=== PATIENT | female | born 2000 | race Caucasian/White ===

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

== ENCOUNTER 2022-03-28 01:26 | Emergency (ER) | payer OTHER ==
--- OUTSIDE RECORDS SUMMARY | 2022-03-28 01:30 | XMS REPORT | Continuity of Care Document ---
:2000 Author Organization [facility] t Address [address] [place] [address] Care Team Providers Name Role Phone Arthur Mcgowan Attending Clinician Unavailable Neurology Attending Clinician Unavailable Doctor Unassigned, [place] Attending Clinician Unavailable Lab, Adc Fam Pob I Attending Clinician Unavailable Shreee Pizano Attending Clinician SHEREE RUIZ Attending Clinician Unavailable Payers Payer Name Policy Type Policy Number Effective Date Expiration Date S ource Towner 53 [id number] [facility] Problems Condition Condition Condition Status Onset Resolution Last Treating Co mments Source Name Details Category Date Date Treatment Clinician Date [id number] Raynaud's Problem Com mon phenomenon [facility] gangrene [facility] Allergies, Adverse Reactions, Alerts Allergy Allergy Status Severity Reaction(s) Onset Inactive Treating Comm ents Source Name Type Date Date Clinician penicill penicill Active Unknown Commo n in V in V [facility] NO KNOWN Drug Active [facility] [place] [facility] Social History Social Habit Start Date Stop Date Quantity Comments Source Exposure to SARS-CoV-2 Yes [facility] [place] [facility] History of Tobacco Use Co mmon [facility] Sex Assigned At Com mon [facility] Smoking Status Start Date Stop Date Source Unknown if ever smoked [facility] Never Smoker Common [facility] Medications Ordered Filled Start Stop Current Ordering Indication Dosage Frequency Signature Comments Components Source Medication Medication Date Date Medication? Clinician (SIG) Name Name Eucrisa 2 % Eucrisa 2 % 2021- No 1{appli BID Eucrisa 2 2-03 03-05 cation} % 00:00: 00:00 00 :00 Azithromyci Azithromyci No QD Azithromyc n 250 MG n 250 MG in 250 MG Azithromyci Azithromyci No QD Azithromyc n 250 MG n 250 MG in 250 MG Immunizations Ordered Filled Immunization Date Status Comments Sour e Immunization Name Name SARS-COV-2 COVID-19 2020-08-16 Completed Unive rsity of PFIZER VACCINE 00:00:00 [facility] SARS-COV-2 COVID-19 2020-07-26 Completed Unive rsity of PFIZER VACCINE 00:00:00 [facility] Vital Signs Vital Name Observation Time Observation Value Comments Source height 2022-02-23 16:20:00 60 [in_i] [facility] weight 2022-02-23 16:20:00 106 [lb_av] [facility] temperature 2022-02-23 16:20:00 98 [degF] [facility] bmi 2022-02-23 16:20:00 20.7 kg/m2 [facility] height 2021-12-29 13:00:00 60 [in_i] [facility] weight 2021-12-29 13:00:00 106.2 [lb_av] [facility] temperature 2021-12-29 13:00:00 97.8 [degF] [facility] bmi 2021-12-29 13:00:00 20.74 kg/m2 [facility] oximetry 2021-12-29 13:00:00 99 % [facility] respiratory rate 2021-12-29 13:00:00 18 /min Comm on [facility] blood pressure 2021-12-29 13:00:00 114 mm[Hg] [facility] blood pressure 2021-12-29 13:00:00 67 mm[Hg] Common [facility] - diastolic [facility] height 2021-12-07 14:30:00 60 [in_i] Common S [facility] weight 2021-12-07 14:30:00 107.4 [lb_av] [facility] temperature 2021-12-07 14:30:00 97.2 [degF] Common S [facility] bmi 2021-12-07 14:30:00 20.97 kg/m2 Common S [facility] oximetry 2021-12-07 14:30:00 99 % [facility] respiratory rate 2021-12-07 14:30:00 18 /min Comm on [facility] blood pressure 2021-12-07 14:30:00 113 mm[Hg] Common [facility] - systolic [facility] blood pressure 2021-12-07 14:30:00 70 mm[Hg] [facility] diastolic [facility] height 2021-05-21 14:40:00 60 [in_i] [facility] weight 2021-05-21 14:40:00 109.3 [lb_av] [facility] temperature 2021-05-21 14:40:00 97.0 [degF] [facility] bmi 2021-05-21 14:40:00 21.34 kg/m2 [facility] oximetry 2021-05-21 14:40:00 100 % [facility] respiratory rate 2021-05-21 14:40:00 18 /min Comm on [facility] blood pressure 2021-05-21 14:40:00 111 mm[Hg] [facility] systolic [facility] blood pressure 2021-05-21 14:40:00 68 mm[Hg] [facility] diastolic [facility] Procedures Procedure Date / Time Performed Performing Clinician [facility] e REFERRAL- 2020-07-14 05:01:00 Doctor Unassigned, No Univer [facility] REQUEST/RESPONSE Name Medical Branch Encounters Start End Encounter Admission Attending Care Care Encounter Source Date/Time Date/Time Type Type Clinicians Facility Department ID 2022-02-23 Outpatient Mcgowan, STLMLC STLMLC [id number] Common 08:30:02 Arthur [address] [facility] 2021-12-30 Outpatient Mcgowan, STLMLC STLMLC [id number] Common 12:26:01 Arthur [facility] 2021-05-21 Outpatient Mcgowan, STLMLC STLMLC [id number] Common 15:00:03 Arthur [facility] 2022-02-23 2022-02-23 (TEL) STLMLC STLMLC [id number] Co mmon 00:00:00 00:00:00 [facility] 2022-02-23 2022-02-23 OFFICE STLC STLC [id number] Co mmon 00:00:00 00:00:00 VISIT EST Spir it PT LEVEL 3 [facility] 2021-12-29 2021-12-29 OFFICE STLMLC STLMLC [id number] Co mmon 00:00:00 00:00:00 VISIT Spirit ESTAB PT - [facility] LEVEL 4 [facility] 2021-12-07 2021-12-07 PREV VISIT STLMLC STLMLC [id number] Common 00:00:00 00:00:00 EST AGE Spirit 18-39 - [facility] 2021-05-21 2021-05-21 OFFICE STLMLC STLMLC [id number] Co mmon 00:00:00 00:00:00 VISIT NEW Spir it PT LEVEL 3 [facility] 2020-09-24 2020-09-24 Letter Neurology UNIVERSIT [id number] Univers 00:00:00 00:00:00 (Out) Y HEALTH [id number] i ty of CLINICS [id number] [place] s [id number] [facility] 092 Branch 2020-08-16 2020-08-16 Outpatient [facility] [id number] Univers 14:30:00 14:30:00 ity [facility] 2020-07-26 2020-07-26 Outpatient [facility] [id number] Univers 13:00:00 13:00:00 ity [facility] 2020-07-14 2020-07-14 Orders Doctor [id number] Univers 00:00:00 00:00:00 Only Unassigned, RIGO [id number] ity of [place] [facility] [id number] Jere as [id number] [address] 2020-03-30 2020-03-30 Laboratory Lab, Adc Fam Pob I [facility] [id number] Univers 08:17:54 08:37:54 Only [facility] [id number] ity of [place] [id number] Jere as Professio [phone] [address] 2020-03-30 2020-03-30 Outpatient R JOSEPH [facility] [id number] Univers 08:20:00 08:20:00 [facility] This patient has no known results.
[2022-03-28 02:35] LABS: SARS-COV-2 RT PCR NEGATIVE (NEGATIVE)
--- NOTE | 2022-03-28 03:04 | ER ---
Nurse's Notes [facility] Name: Shen Cutler Age: 21 yrs Sex: Female : 2000 Arrival Date: 03/28/2022 Time: 01:29 Bed 6 Private MD: Diagnosis: Streptococcal pharyngitis Presentation: 03/28 01:35 Chief complaint: Patient states: sore throat diff swallowing x 2 days. Coronavirus kl screen: Vaccine status: Patient reports receiving the 2nd dose of the covid vaccine. Ebola Screen: Patient negative for fever greater than or equal to 101.5 degrees Fahrenheit, and additional compatible Ebola Virus Disease symptoms. Initial Sepsis Screen: Does the patient meet any 2 criteria? No. Patient's initial sepsis screen is negative. Does the patient have a suspected source of infection? No. Patient's initial sepsis screen is negative. Risk Assessment: Do you want to hurt yourself or someone else? Patient reports no desire to harm self or others. 01:35 Method Of Arrival: Ambulatory kl 01:35 Acuity: JOSHUA 4 kl 01:43 Onset of symptoms was March 25, 2022. as6 Triage Assessment: 01:37 General: Appears in no apparent distress. comfortable, well groomed, well developed, kl Behavior is calm, cooperative. Pain: Complains of pain in throat Pain currently is 6 out of 10 on a pain scale. Cardiovascular: No deficits noted. Respiratory: Reports Airway is patent Trachea midline Respiratory effort is even, unlabored. 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 - Social history:: Smoking status: Patient denies any tobacco usage or history of. Screenin:42 Abuse screen: Denies threats or abuse. Denies injuries from another. Nutritional as6 screening: No deficits noted. Tuberculosis screening: No symptoms or risk factors identified. Fall Risk None identified. Assessment: 02:50 General: Appears in no apparent distress. Behavior is calm, cooperative. Neuro: Level kd3 of Consciousness is awake, alert, obeys commands, Oriented to person, place, time, situation. Respiratory: Airway is patent Trachea midline Respiratory effort is even, unlabored, Respiratory pattern is regular, symmetrical. EENT: Throat is reddened has enlarged tonsils. Vital Signs: 01:35 BP 127 / 84; Pulse 101; Resp 16; Temp 98.4(O); Pulse Ox 100% on R/A; Weight 45.36 kg kl (R); Height 5 ft. (152.40 cm); Pain 6/10; 02:49 BP 124 / 78; Pulse 101; Resp 18; Pulse Ox 100% on R/A; kd3 03:09 BP 113 / 70; Pulse 100; Resp 18; Pulse Ox 99% on R/A; kd3 01:35 Body Mass Index 19.53 (45.36 kg, 152.40 cm) ED Course: 01:29 Patient arrived in ED. bp1 01:32 Orly Rutledge RN is Primary Nurse. kd3 01:33 Ian Diaz MD is Attending Physician. kdr 01:37 Triage completed. kl 01:42 Arm band placed on. as6 01:43 Bed in low position. Call light in reach. as6 01:50 Strep Sent. as6 01:50 COVID-19/FLU A+B/RSV Sent. as6 03:09 No provider procedures requiring assistance completed. Patient did not have IV access kd3 during this emergency room visit. Administered Medications: 03:09 Drug: Zithromax (azithromycin) 500 mg Route: PO; kd3 03:11 Follow up: Response: No adverse reaction kd3 Medication: 02:51 VIS not applicable for this client. kd3 Outcome: 03:04 Discharge ordered by . kdr 03:10 Discharged to home ambulatory. kd3 03:10 Condition: stable 03:10 Discharge instructions given to patient, Instructed on discharge instructions, follow up and referral plans. medication usage, Demonstrated understanding of instructions, follow-up care, medications, Prescriptions given X 2. 03:11 Patient left the ED. kd3 Signatures: Manuela Crooks RN RN kl Rittger, Kevin, MD MD [facility] Candis Harvey bp1 Felix Puri RN RN as6 Orly Rutledge RN RN kd3
--- NOTE | 2022-03-28 03:04 | EDPHYS ---
Physician Documentation [facility] Name: Shen Cutler Age: 21 yrs Sex: Female : 2000 Arrival Date: 03/28/2022 Time: 01:29 Bed 6 Private MD: ED Physician Ian Diaz HPI: 03/28 01:49 This 21 yrs old Female presents to ER via Ambulatory with complaints of Breathing kdr Difficulty, Swollen Tonsils. 01:50 The patient reports that she has been having sore throat for the last 2 days. It hurts kdr to swallow and sometimes it seems difficult to breathe. She also states that her boyfriend has noted that she is snoring now whereas she had not previously. She denies fever, chills or cough. Patient is nontoxic-appearing. Onset: The symptoms/episode began/occurred gradually, 2 day(s) ago. Severity of symptoms: At their worst the symptoms were mild moderate just prior to arrival, in the emergency department the symptoms are unchanged. The patient has experienced a previous episode, last month, Patient states that she had an episode of pharyngitis about a month ago and this was treated by her PCP with an unknown antibiotic. It resolved.. The patient has not recently seen a physician. 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 - Social history:: Smoking status: Patient denies any tobacco usage or history of. ROS: 01:50 Constitutional: Negative for fever, chills, and weight loss, Eyes: Negative for injury, kdr pain, redness, and discharge, Neck: Negative for injury, pain, and swelling, Cardiovascular: Negative for chest pain, palpitations, and edema, Respiratory: Negative for shortness of breath, cough, wheezing, and pleuritic chest pain, Abdomen/GI: Negative for abdominal pain, nausea, vomiting, diarrhea, and constipation, Back: Negative for injury and pain. 01:50 ENT: Positive for difficulty swallowing, sore throat. 01:50 Neck: Positive for swollen nodes, tenderness, of the face, right lateral aspect of neck, right anterior aspect of neck, left lateral aspect of neck and left anterior aspect of neck. Exam: 01:50 Constitutional: This is a well developed, well nourished patient who is awake, alert, kdr and in no acute distress. Head/Face: Normocephalic, atraumatic. Eyes: Pupils equal round and reactive to light, extra-ocular motions intact. Lids and lashes normal. Conjunctiva and sclera are non-icteric and not injected. Cornea within normal limits. Periorbital areas with no swelling, redness, or edema. Neck: Trachea midline, no thyromegaly or masses palpated, and no cervical lymphadenopathy. Supple, full range of motion without nuchal rigidity, or vertebral point tenderness. No Meningismus. Chest/axilla: Normal chest wall appearance and motion. Nontender with no deformity. No lesions are appreciated. Cardiovascular: Regular rate and rhythm with a normal S1 and S2. No gallops, murmurs, or rubs. Normal PMI, no JVD. No pulse deficits. Respiratory: Lungs have equal breath sounds bilaterally, clear to auscultation and percussion. No rales, rhonchi or wheezes noted. No increased work of breathing, no retractions or nasal flaring. Abdomen/GI: Soft, non-tender, with normal bowel sounds. No distension or tympany. No guarding or rebound. No evidence of tenderness throughout. 01:50 ENT: Posterior pharynx: Airway: no evidence of obstruction, patent, Tonsils: bilaterally enlarged, with erythema, with exudate, Uvula: midline, swelling, that is moderate, that is marked, erythema, that is moderate, exudate, that is mild, pooling of secretions, is not appreciated. Vital Signs: 01:35 BP 127 / 84; Pulse 101; Resp 16; Temp 98.4(O); Pulse Ox 100% on R/A; Weight 45.36 kg kl (R); Height 5 ft. (152.40 cm); Pain 6/10; 02:49 BP 124 / 78; Pulse 101; Resp 18; Pulse Ox 100% on R/A; kd3 03:09 BP 113 / 70; Pulse 100; Resp 18; Pulse Ox 99% on R/A; kd3 01:35 Body Mass Index 19.53 (45.36 kg, 152.40 cm) kl MDM: 01:50 Data reviewed: vital signs, nurses notes, lab test result(s), radiologic studies. kdr Counseling: I had a detailed discussion with the patient and/or guardian regarding: the historical points, exam findings, and any diagnostic results supporting the discharge/admit diagnosis, lab results, radiology results, the need for outpatient follow up. 03:04 Patient medically screened. kdr 03/28 01:42 Order name: Strep; Complete Time: 03:02 kdr 03/28 01:46 Order name: COVID-19/FLU A+B/RSV; Complete Time: 02:39 mw2 Administered Medications: 03:09 Drug: Zithromax (azithromycin) 500 mg Route: PO; kd3 03:11 Follow up: Response: No adverse reaction kd3 Disposition Summary: 03/28/22 03:04 Discharge Ordered Location: Home kdr Problem: new kdr Symptoms: have improved kdr Condition: Stable kdr Diagnosis - Streptococcal pharyngitis kdr Followup: kdr - With: Private Physician - When: 2 - 3 days - Reason: If symptoms return, Further diagnostic work-up, Recheck today's complaints, Continuance of care, Re-evaluation by your physician Discharge Instructions: - Discharge Summary Sheet kdr - Pharyngitis kdr - Strep Throat, Adult kdr Forms: - Medication Reconciliation Form kdr - Thank You Letter kdr - Antibiotic Education kdr Prescriptions: - Ibuprofen 600 mg Oral Tablet - take 1 tablet by ORAL route every 6 hours As needed take with food; 15 tablet; kdr Refills: 0, Product Selection Permitted - Zithromax Z-Moreno 250 mg Oral Tablet - take 1 tablet by ORAL route once daily for 4 days; 4 tablet; Refills: 0, kdr Product Selection Permitted Signatures: Dispatcher [employer] Manuela Rashid RN RN kl Rittger, Kevin, MD MD kdr Doucette, Kyli, RN RN kd3
[2022-03-28] MEDS ORDERED: AZITHROMYCIN 250 MG TAB ONE (03:08)
[2022-03-28 03:15] VITALS: TEMP 98.4
[2022-03-28 03:17] VITALS: BP 113/70; O2SAT 99
[2022-03-28] MEDS ORDERED: LORAZEPAM 1 MG TABLET ONE (04:48)
== END 2022-03-28 03:11 | disposition home or self-care (01) ==
LOC: ER 01:26
DX: J02.0 Streptococcal pharyngitis (principal); Z20.822 Contact with and (suspected) exposure to COVID-19; Z88.0 Allergy status to penicillin; Z88.8 Allergy status to other drugs, medicaments and biological substances
CPT/HCPCS: 87081; 0241U; 99283; Q0144

== ENCOUNTER 2022-04-26 01:45 | Emergency (ER) | payer OTHER ==
--- OUTSIDE RECORDS SUMMARY | 2022-04-26 01:48 | XMS REPORT | Continuity of Care Document ---
:2000 Author Organization [facility] t Address [address] [place] [address] Care Team Providers Name Role Phone Arthur Mcgowan Attending Clinician Unavailable Neurology Attending Clinician Unavailable Doctor Unassigned, [place] Attending Clinician Unavailable Lab, Adc Fam Pob I Attending Clinician Unavailable Sheree Pizano Attending Clinician SHEREE RUIZ Attending Clinician Unavailable Payers Payer Name Policy Type Policy Number Effective Date Expiration Date [employer] 53 [id number] [facility] Problems Condition Condition Condition Status Onset Resolution Last Treating Co mments Source Name Details Category Date Date Treatment Clinician Date [id number] Raynaud's Problem Com mon phenomenon [facility] without [facility] gangrene [facility] Allergies, Adverse Reactions, Alerts Allergy Allergy Status Severity Reaction(s) Onset Inactive Treating Comm ents Source Name Type Date Date Clinician NO KNOWN Drug Active Univers ALLERGIE Class [facility] penicill penicill Active Unknown Commo n in V in V [facility] Social History Social Habit Start Date Stop Date Quantity Comments Source Exposure to SARS-CoV-2 Yes [facility] [place] (event[facility] History of Tobacco Use Co mmon [facility] Sex Assigned At Com mon [facility] Smoking Status Start Date Stop Date Source Unknown if ever smoked [facility] Never Smoker Common [facility] Medications Ordered Filled Start Stop Current Ordering [...] Completed Unive rsity of PFIZER VACCINE 00:00:00 [facility] SARS-COV-2 COVID-19 2020-07-26 Completed Unive rsity of PFIZER VACCINE 00:00:00 [facility] Vital Signs Vital Name Observation Time Observation Value Comments Source height 2022-02-23 16:20:00 60 [in_i] [facility] weight 2022-02-23 16:20:00 106 [lb_av] [facility] temperature 2022-02-23 16:20:00 98 [degF] [facility] bmi 2022-02-23 16:20:00 20.7 kg/m2 [facility] height 2021-12-29 13:00:00 60 [in_i] [facility] weight 2021-12-29 13:00:00 106.2 [lb_av] [facility] temperature 2021-12-29 13:00:00 97.8 [degF] [facility] bmi 2021-12-29 13:00:00 20.74 kg/m2 [facility] oximetry 2021-12-29 13:00:00 99 % [facility] respiratory rate 2021-12-29 13:00:00 18 /min Comm on [facility] blood pressure 2021-12-29 13:00:00 114 mm[Hg] [facility] blood pressure 2021-12-29 13:00:00 67 mm[Hg] Common [facility] - diastolic [facility] height 2021-12-07 14:30:00 60 [in_i] Common [facility] weight 2021-12-07 14:30:00 107.4 [lb_av] [facility] temperature 2021-12-07 14:30:00 97.2 [degF] Common [facility] bmi 2021-12-07 14:30:00 20.97 kg/m2 Common S [facility] oximetry 2021-12-07 14:30:00 99 % [facility] respiratory rate 2021-12-07 14:30:00 18 /min Comm on [facility] blood pressure 2021-12-07 14:30:00 113 mm[Hg] Common [facility] - systolic [facility] blood pressure 2021-12-07 14:30:00 70 mm[Hg] [facility] diastolic [facility] height 2021-05-21 14:40:00 60 [in_i] [facility] weight 2021-05-21 14:40:00 109.3 [lb_av] [facility] temperature 2021-05-21 14:40:00 97.0 [degF] [facility] bmi 2021-05-21 14:40:00 21.34 kg/m2 [facility] oximetry 2021-05-21 14:40:00 100 % [facility] respiratory rate 2021-05-21 14:40:00 18 /min Comm on [facility] blood pressure 2021-05-21 14:40:00 111 mm[Hg] [facility] systolic [facility] blood pressure 2021-05-21 14:40:00 68 mm[Hg] [facility] diastolic [facility] Procedures Procedure Date / Time Performed Performing Clinician [facility] e REFERRAL- 2020-07-14 05:01:00 Doctor Unassigned, No Univer [facility] REQUEST/RESPONSE Name Medical Branch Encounters Start End Encounter Admission Attending Care Care Encounter Source Date/Time Date/Time Type Type Clinicians Facility Department ID 2022-02-23 Outpatient Mcgowan, STLMLC STLMLC [id number] Common 08:30:02 Arthur [address] [facility] 2021-12-30 Outpatient Mcgowan, STLMLC STLMLC [id number] Common 12:26:01 Arthur [facility] 2021-05-21 Outpatient Mcgowan, STLMLC STLMLC [id number] Common 15:00:03 Arthur [facility] 2022-02-23 2022-02-23 (TEL) STLMLC STLMLC [id number] Co mmon 00:00:00 00:00:00 [facility] 2022-02-23 2022-02-23 OFFICE STLC STLC [id number] Co mmon 00:00:00 00:00:00 VISIT EST Spir it PT LEVEL 3 [facility] 2021-12-29 2021-12-29 OFFICE STLMLC STLMLC [id number] Co mmon 00:00:00 00:00:00 VISIT Spirit ESTAB PT - [facility] LEVEL 4 [facility] 2021-12-07 2021-12-07 PREV VISIT STLMLC STLMLC [id number] Common 00:00:00 00:00:00 EST AGE Spirit 18-39 - [facility] 2021-05-21 2021-05-21 OFFICE STLMLC STLMLC [id number] Co mmon 00:00:00 00:00:00 VISIT NEW Spir it PT LEVEL 3 [facility] 2020-09-24 2020-09-24 Letter Neurology [facility] [id number] Univers 00:00:00 00:00:00 (Out) Y HEALTH [id number] i ty of CLINICS [id number] [place] s [phone] [facility] 092 Branch 2020-08-16 2020-08-16 Outpatient [facility] [id number] Univers 14:30:00 14:30:00 ity [facility] 2020-07-26 2020-07-26 Outpatient [facility] [id number] Univers 13:00:00 13:00:00 ity [facility] 2020-07-14 2020-07-14 Orders Doctor [id number] Univers 00:00:00 00:00:00 Only Unassigned, RIGO [id number] ity of [place] [facility] [id number] Jere as [phone] [address] 2020-03-30 2020-03-30 Laboratory Lab, Adc Fam Pob I [facility] [id number] Univers 08:17:54 08:37:54 Only [facility] [id number] ity of [place] [id number] Jere as Professio [phone] [address] Office [address] 2020-03-30 2020-03-30 Outpatient R [facility] [id number] Univers 08:20:00 08:20:00 [facility] This patient has no known results.
--- NOTE | 2022-04-26 02:25 | ER ---
Nurse's Notes [facility] Name: Shen Cutler Age: 21 yrs Sex: Female : 2000 Arrival Date: 04/26/2022 Time: 01:51 Bed 15 Private MD: Diagnosis: Streptococcal pharyngitis Presentation: 04/26 02:10 Chief complaint: Patient states: "I have had a sore throat, fever, dry eyes and a vc1 headache for the last day or 2.". Coronavirus screen: Vaccine status: Patient reports receiving the 2nd dose of the covid vaccine. Pfizer fever, headache. Ebola Screen: No symptoms or risks identified at this time. Initial Sepsis Screen: Does the patient meet any 2 criteria? No. Patient's initial sepsis screen is negative. Does the patient have a suspected source of infection? No. Patient's initial sepsis screen is negative. Risk Assessment: Do you want to hurt yourself or someone else? Patient reports no desire to harm self or others. Onset of symptoms was April 24, 2022. 02:10 Method Of Arrival: Ambulatory vc1 02:10 Acuity: JOSHUA 4 vc1 Triage Assessment: 02:14 General: Appears in no apparent distress. comfortable, ill, Behavior is calm, vc1 cooperative, appropriate for age. Pain: Complains of pain in "headache" Pain does not radiate. EENT: Reports "dry eyes". Neuro: Level of Consciousness is awake, alert, obeys commands, Oriented to person, place, time, situation, Appropriate for age. Cardiovascular: No deficits noted. Respiratory: Airway is patent Respiratory effort is even, unlabored, Respiratory pattern is regular, symmetrical. GI: No deficits noted. No signs and/or symptoms were reported involving the gastrointestinal system. : No deficits noted. No signs and/or symptoms were reported regarding the genitourinary system. Derm: No deficits noted. No signs and/or symptoms reported regarding the dermatologic system. Musculoskeletal: No deficits noted. No signs and/or symptoms reported regarding the musculoskeletal system. 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 - Social history:: Smoking status: Patient denies any tobacco usage or history of. - Family history:: not pertinent. Screenin:16 Abuse screen: Denies threats or abuse. Nutritional screening: No deficits noted. vc1 Tuberculosis screening: No symptoms or risk factors identified. 02:20 [facility] ED Fall Risk Assessment (Adult) History of falling in the last 3 months, pf1 including since admission No falls in past 3 months (0 pts) Confusion or Disorientation No (0 pts) Intoxicated or Sedated No (0 pts) Impaired Gait No (0 pts) Mobility Assist Device Used No (0 pt) Altered Elimination No (0 pt) Score/Fall Risk Level 0 - 2 = Low Risk Oriented to surroundings, Maintained a safe environment, Educated pt \\T\\ family on fall prevention, incl call for assistance when getting out of bed, Assessed \\T\\ reinforced patient's understanding of fall precautions, Provided non-skid footwear, Hourly rounding (assess needs \\T\\ fall precautionary measures) done, Used ambulatory aids as needed (educated on \\T\\ assisted with), Used gait belt as appropriate. Assessment: 02:10 General: Appears in no apparent distress. comfortable, well groomed, well developed, pf1 Behavior is calm, cooperative, appropriate for age, quiet. 02:10 Pain: Complains of pain in Patient C/O sore throat and headache pain of 5,onset pf1 yesterday. Neuro: No deficits noted. Level of Consciousness is awake, alert, obeys commands, Oriented to person, place, time, situation. Cardiovascular: No deficits noted. Respiratory: No deficits noted. Airway is patent Trachea midline Respiratory effort is even, unlabored, Respiratory pattern is regular, symmetrical, Breath sounds are clear bilaterally. GI: No deficits noted. No signs and/or symptoms were reported involving the gastrointestinal system. : No deficits noted. No signs and/or symptoms were reported regarding the genitourinary system. EENT: Eyes Patient C/O dry eyes,onset yesterday. Throat is reddened has enlarged tonsils. Derm: No deficits noted. No signs and/or symptoms reported regarding the dermatologic system. Vital Signs: 02:10 BP 112 / 78; Pulse 92; Resp 16; Temp 99.3; Pulse Ox 100% ; Weight 45.36 kg; Height 5 vc1 ft. 0 in. (152.40 cm); 02:45 BP 114 / 75; Pulse 89; Resp 18; Temp 99.1; Pulse Ox 100% on R/A; Pain 5/10; pf1 02:10 Body Mass Index 19.53 (45.36 kg, 152.40 cm) vc1 ED Course: 01:51 Patient arrived in ED. ja2 02:09 Kael Gibbons MD is Attending Physician. rt 02:13 Triage completed. vc1 02:16 Patient has correct armband on for positive identification. Bed in low position. Call vc1 light in reach. Pulse ox on. NIBP on. 02:20 Arm band placed on left wrist. pf1 02:21 Page castillo RN is Primary Nurse. pf1 02:27 No provider procedures requiring assistance completed. pf1 02:47 Patient did not have IV access during this emergency room visit. pf1 Administered Medications: No medications were administered Medication: 02:16 VIS not applicable for this client. vc1 Outcome: 02:24 Discharge ordered by MD. rt 02:47 Discharged to home ambulatory, with family. pf1 02:47 Condition: stable 02:47 Discharge instructions given to patient, family, Instructed on discharge instructions, follow up and referral plans. medication usage, Demonstrated understanding of instructions, follow-up care, medications, Prescriptions given X 1. 02:49 Patient left the ED. pf1 Signatures: Talia Arellano ja2 Damari Grhaam RN RN vc1 Kael Gibbons MD MD rt Page castillo, ROMY RN pf1 Corrections: (The following items were deleted from the chart) 02:25 02:10 BP 112 / 78; Pulse 92bpm; Resp 100bpm; Pulse Ox 100%; Temp 99.3F; 45.36 kg; vc1 Height 5 ft. 0 in.; BMI: 19.5; vc1 02:27 02:22 General: Appears pf1 pf1
--- NOTE | 2022-04-26 02:25 | EDPHYS ---
Physician Documentation [facility] Name: Shen Cutler Age: 21 yrs Sex: Female : 2000 Arrival Date: 04/26/2022 Time: 01:51 Bed 15 Private MD: ED Physician Kael Gibbons HPI: 04/26 02:37 This 21 yrs old Female presents to ER via Ambulatory with complaints of Sore Throat, rt Fever, Eye Problem, Headache. 02:37 The patient presents with sore throat. The patient describes throat pain as scratchy. rt Onset: The symptoms/episode began/occurred today. Severity of symptoms: At their worst the symptoms were mild. Modifying factors: The symptoms are alleviated by over the counter medications, Tylenol. She presents to the ED with sore throat starting today. This is consistent with prior episodes of strep pharyngitis. The patient states that hurts to swallow. Reports fever, headache. Denies other acute complaints at this time. Symptoms are mild in severity, no other aggravating or alleviating factors. Pain is aching nature, nonradiating. She states that she did get improvement of the fever and pain with Tylenol earlier.. 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 - Social history:: Smoking status: Patient denies any tobacco usage or history of. - Family history:: not pertinent. ROS: 02:37 Constitutional: Negative for fever, chills, and weight loss, Eyes: Negative for injury, rt pain, redness, and discharge, Cardiovascular: Negative for chest pain, palpitations, and edema, Respiratory: Negative for shortness of breath, cough, wheezing, and pleuritic chest pain, Abdomen/GI: Negative for abdominal pain, nausea, vomiting, diarrhea, and constipation, MS/Extremity: Negative for injury and deformity, Skin: Negative for injury, rash, and discoloration, Neuro: Negative for headache, weakness, numbness, tingling, and seizure, Psych: Negative for depression, anxiety, suicide ideation, homicidal ideation, and hallucinations. 02:37 ENT: Positive for sore throat, Negative for rhinorrhea. Exam: 02:37 Constitutional: This is a well developed, well nourished patient who is awake, alert, rt and in no acute distress. Head/Face: Normocephalic, atraumatic. Chest/axilla: Normal chest wall appearance and motion. Nontender with no deformity. No lesions are appreciated. Cardiovascular: Regular rate and rhythm with a normal S1 and S2. No gallops, murmurs, or rubs. Normal PMI, no JVD. No pulse deficits. Respiratory: Lungs have equal breath sounds bilaterally, clear to auscultation and percussion. No rales, rhonchi or wheezes noted. No increased work of breathing, no retractions or nasal flaring. Abdomen/GI: Soft, non-tender, with normal bowel sounds. No distension or tympany. No guarding or rebound. No evidence of tenderness throughout. Skin: Warm, dry with normal turgor. Normal color with no rashes, no lesions, and no evidence of cellulitis. Neuro: Awake and alert, GCS 15, oriented to person, place, time, and situation. Cranial nerves II-XII grossly intact. Motor strength 5/5 in all extremities. Sensory grossly intact. Cerebellar exam normal. Normal gait. Psych: Awake, alert, with orientation to person, place and time. Behavior, mood, and affect are within normal limits. 02:37 ENT: Posterior pharyngeal erythema with exudates, 2+ tonsils, equal, uvula is midline. No stridor.. 02:37 Neck: Tender submandibular lymphadenopathy bilaterally, trachea is midline. Vital Signs: 02:10 BP 112 / 78; Pulse 92; Resp 16; Temp 99.3; Pulse Ox 100% ; Weight 45.36 kg; Height 5 vc1 ft. 0 in. (152.40 cm); 02:45 BP 114 / 75; Pulse 89; Resp 18; Temp 99.1; Pulse Ox 100% on R/A; Pain 5/10; pf1 02:10 Body Mass Index 19.53 (45.36 kg, 152.40 cm) vc1 MDM: 02:13 Patient medically screened. rt 02:37 Differential diagnosis: , Strep pharyngitis, peritonsillar abscess, Jose's angina, rt retropharyngeal abscess. Data reviewed: vital signs, nurses notes, old medical records. ED course: Patient presents to the ED with sore throat that is similar to prior episodes of strep pharyngitis. Patient's oropharynx is strong appearance of a streptococcal infection, therefore, will defer strep testing and treat empirically. The patient has tonsillar hypertrophy, however, has no clinical evidence to suggest a retropharyngeal abscess, peritonsillar abscess. No evidence to suggest Jose's angina. She is stable for outpatient care, vital signs are stable. Will return for worsening symptoms.. Administered Medications: No medications were administered Disposition Summary: 04/26/22 02:24 Discharge Ordered Location: Home rt Problem: new rt Symptoms: have improved rt Condition: Stable rt Diagnosis - Streptococcal pharyngitis rt Followup: rt - With: Private Physician - When: 2 - 3 days - Reason: Discharge Instructions: - Discharge Summary Sheet rt - Strep Throat, Adult, Ot[place]-jn-Sopp rt Forms: - Medication Reconciliation Form rt - Thank You Letter rt - Antibiotic Education rt - Prescription Opioid Use rt Prescriptions: - Zithromax Z-Moreno 250 mg Oral Tablet - take 1 tablet by ORAL route as directed for 5 days Day 1 - take two (2) tablets rt one time. Day 2, 3, 4 , 5 take one (1) tablet once daily.; 6 tablet; Refills: 0, Product Selection Permitted Signatures: Damari Graham RN RN vc1 Kael Gibbons MD MD rt
[2022-04-26 02:55] VITALS: O2SAT 100
[2022-04-26 02:56] VITALS: BP 114/75; TEMP 99.1
== END 2022-04-26 02:49 | disposition home or self-care (01) ==
LOC: ER 01:45
DX: J02.0 Streptococcal pharyngitis (principal); Z88.0 Allergy status to penicillin; Z88.8 Allergy status to other drugs, medicaments and biological substances
CPT/HCPCS: 99283